=== PATIENT | male | born 1960 | race Two or more races ===

== ENCOUNTER 2021-08-25 09:30 | Emergency (ER) | payer OTHER ==
[~2021-08-25] VITALS: Ht 172.7 cm; Wt 61.2 kg
[2021-08-25] MEDS ORDERED: GLUCOPHAGE (09:44)
[2021-08-25] MEDS ORDERED: BP MED (09:44)
--- NOTE | 2021-08-25 10:10 | NUR ---
PATIENT WAS SEEN BY MD. EGD DONE. COVID SWAB SENT TO LAB
[2021-08-25 10:20] LABS: HEMATOCRIT 39.7 % (36.7-47.1); MEAN CORPUSCULAR HEMOGLOBIN 32.5 uug (23.8-33.4); MEAN CORPUSCULAR VOLUME 93.7 fL (73.0-96.2); PLATELET COUNT (AUTO) 325 K/uL (152-348)
[2021-08-25 10:22] LABS: CARBON DIOXIDE 28 mmol/L (21-32); CHLORIDE 104 mmol/L (98-107); CREATININE 0.7 mg/dL (0.6-1.3); GLUCOSE 110 mg/dL (74-106); POTASSIUM 3.7 mmol/L (3.5-5.1); UREA NITROGEN, BLOOD 21 mg/dL (7-18)
[2021-08-25 10:33] LABS: ALANINE AMINOTRANSFERASE 42 U/L (16-63); ALKALINE PHOSPHATASE 76 U/L (50-136); ASPARTATE AMINOTRANSFERASE 29 U/L (15-37); BILIRUBIN,DIRECT 0.1 mg/dL (0.0-0.2); BILIRUBIN,TOTAL 0.5 mg/dL (0.2-1.0); TOTAL PROTEIN, SERUM 6.9 g/dL (6.4-8.2)
[2021-08-25 10:36] LABS: ACETAMINOPHEN < 2.0 ug/mL (10-30); ETHANOL < 3 MG/DL (0-0)
--- NOTE | 2021-08-25 12:20 | NUR ---
PATIENT IS SITTING UP EATING A SANDWICH, CRACKERS, JUICE AND WATER.
--- NOTE | 2021-08-25 12:37 | NUR ---
URINE SENT TO LAB
[2021-08-25 12:51] LABS: *BILIRUBIN,URIN NEGATIVE (NEGATIVE); *BLOOD, URINE NEGATIVE (NEGATIVE); *CLARITY,URINE CLEAR (CLEAR); *COLOR,URINE YELLOW (YELLOW); *KETONES,URINE NEGATIVE (NEGATIVE); LEUKOCYTE ESTERASE ,URINE NEGATIVE (NEGATIVE); NITRITE, URINE NEGATIVE (NEGATIVE); PH,URINE 5.5 (5.0-8.0); UGLUCOSE NEGATIVE (NEGATIVE)
[2021-08-25 13:05] LABS: *AMPHETAMINE, URINE NEGATIVE (NEGATIVE); *CANNABINOID, URINE POSITIVE (NEGATIVE); *COCCAINE, URINE NEGATIVE (NEGATIVE); *OPIATE, URINE NEGATIVE (NEGATIVE); *PHENCYCLIDINE SCREEN,URINE NEGATIVE (NEGATIVE)
--- NOTE | 2021-08-25 13:51 | NUR ---
Clinical Social Work Note RONDA met with 61 year old male who is alert and oriented x3. Patient presents with a withdrawn mood and flat effect. Patient was quite and spoke very little. Patient stated that he wants to go voluntary be admitted to [facility]. RONDA contacted Corey ([phone]) from [facility] and discussed patient's voluntary admission. RONDA faxed Corey patient's clinicals and asked to provide RONDA with update. Plan: RONDA will continue to follow up with Corey and update ED.
--- NOTE | 2021-08-25 15:01 | NUR ---
Patient ambulated to bathroom with steady gait. Patient aware of transfer to [facility]. Report given to Rose.
--- NOTE | 2021-08-25 16:01 | NUR ---
Clinical Social Work Note RONDA called [facility] ([phone]) and [facility] ([phone]) to inquire about wait times for ambulance picker / packer. [facility] earliest picker / packer is 7:30 PM and [facility] earliest picker / packer time is 6:30 PM. RONDA confirmed with Osorio at [facility] ([phone]) for picker / packer at 6:30 PM.m RONDA informed, Yakelin RN, about picker / packer details and she noted.
--- NOTE | 2021-08-25 16:50 | NUR ---
Patient had stated that he wants to step outside and smoke and said "I will be back". That was aproximately an hour ago. I have gone outside several times to see if he is out there and he is not. The ambulance is on the way to get him. I will cancel the ambulance if he doesnt return soon.
--- NOTE | 2021-08-25 17:15 | NUR ---
I called and cancelled ambulance since patient eloped
== END 2021-08-25 17:29 | disposition left against medical advice (07) ==
LOC: EDBD 09:30 → ER 09:30
DX: F29 Unspecified psychosis not due to a substance or known physiological condition (principal); Z53.20 Procedure and treatment not carried out because of patient's decision for unspecified reasons; Z59.02 Unsheltered homelessness; Z20.822 Contact with and (suspected) exposure to COVID-19; E11.9 Type 2 diabetes mellitus without complications; I10 Essential (primary) hypertension; Z79.84 Long term (current) use of oral hypoglycemic drugs; Z79.899 Other long term (current) drug therapy; Z91.013 Allergy to seafood; Z82.49 Family history of ischemic heart disease and other diseases of the circulatory system
CPT/HCPCS: 36415; 70030-TC; 71045; 84443; 85025; 85730; 87086; 93005; A4663; G0480